=== PATIENT | male | born 1965 | race Two or more races ===

== ENCOUNTER 2020-10-14 14:36 | Inpatient (IN) | payer OTHER ==
[~2020-10-14] VITALS: Ht 30.5 cm; Wt 81.8 kg
[2020-10-14] MEDS ORDERED: NITROGLYCERIN 0.4 MG SL TAB SL PRN (15:15)
[2020-10-14] MEDS ORDERED: ACETAMINOPHEN 500 MG TAB PO PRN (15:15)
[2020-10-14] MEDS ORDERED: ONDANSETRON HCL 4 MG/2 ML VIAL IV PRN (15:15)
[2020-10-14] MEDS ORDERED: ACETAMINOPHEN 325 MG TAB PO PRN (15:15)
[2020-10-14] MEDS ORDERED: MORPHINE SULF INJ 2 MG/ML SYRINGE 1ML IV PRN ×2 (15:15)
[2020-10-14] MEDS ORDERED: TEMAZEPAM 15 MG CAP PO PRN (15:15)
[2020-10-14] MEDS ORDERED: HYDROmorphone HCL 2 MG/ML VL IV PRN (15:15)
[2020-10-14] MEDS ORDERED: REMDESIVIR PER PHARMACY 0 ML IV SCH (15:15)
[2020-10-14] MEDS ORDERED: HYDROcodone-ACET 5/325MG TAB PO PRN (15:15)
[2020-10-14 16:00] VITALS: BP 124/77
[2020-10-14] MEDS ORDERED: REMDESIVIR 200 MG in NS 210ml LOADING DOSE ADULT IV ONE (17:00)
[2020-10-14] MEDS: ALBUTEROL SULF HFA 90MCG INH 200DOSE IN PRN (19:30)
[2020-10-14] MEDS: BUDESONIDE (INHALATION) 180 MCG IH IN SCH (19:30)
[2020-10-14] MEDS ORDERED: CEFTRIAXONE SODIUM 2 GM in D5W 5% 50 ML IV ONE (20:30)
[2020-10-14] MEDS ORDERED: POLYETHYLENE GLYCOL 17 GM PWDR PO ONE (20:30)
[2020-10-14] MEDS ORDERED: cefTRIAXone 1GM/50ML D5W 50 ML IV ONE ×3 (20:45→21:00)
[2020-10-14] MEDS: ENOXAPARIN SOD 40 MG/0.4 ML SYRINGE SC SCH (21:38)
[2020-10-14] MEDS: SODIUM CHLOR 0.9% PF (SALINE LOCK) 10ML VIAL/SYR IV SCH (21:38)
[2020-10-15] VITALS: BP 128/80
[2020-10-15] MEDS: SODIUM CHLOR 0.9% PF (SALINE LOCK) 10ML VIAL/SYR IV SCH (05:48)
[2020-10-15 06:22] LABS: Basophils # (auto) 0 10 ^3/uL (0-0.2); Basophils % (auto) 0.7 % (0.0-2.0); Eosinophils # (auto) 0.2 10 ^3/uL (0-0.8); Eosinophils % (auto) 3.3 % (0.0-7.0); Hematocrit 37.6 % (41.0-53.0); Hemoglobin 13.2 g/dL (13.5-17.5); Lymphocytes # (auto) 1.5 10 ^3/uL (0.4-5.4); Lymphocytes % (auto) 29.9 % (10.0-50.0); Mean Corpuscular Hemoglobin 28.9 pg (28.0-32.0); Mean Corpuscular Hgb Conc. 35.1 g/dL (32.0-36.0); Mean Corpuscular Volume 82.3 fL (80.0-100.0); Monocytes # (auto) 0.7 10 ^3/uL (0-1.3); Monocytes % (auto) 13.9 % (0.0-12.0); Neutrophils # (auto) 2.7 10 ^3/uL (1.6-8.6); Neutrophils % (auto) 52.2 % (37.0-80.0); Nucleated Red Blood Cells % 0.1 %; Platelet Count (auto) 439 10^3/uL (140-450); Red Blood Cells 4.57 10^6/uL (4.5-5.90); Red Cell Distribution Width 13.8 % (11.8-14.3); White Blood Cell 5.2 10^3/uL (4.4-10.8)
[2020-10-15] MEDS: BUDESONIDE (INHALATION) 180 MCG IH IN SCH (06:30)
[2020-10-15 06:47] LABS: Potassium 4.1 mmol/L (3.5-5.1)
[2020-10-15 06:56] LABS: Cholesterol 142 mg/dL (< 200); HDL Cholesterol 35 mg/dL (40-59); LDL Cholesterol 97 mg/dL (< 100); Triglycerides 119 mg/dL (< 150)
[2020-10-15 06:59] LABS: Albumin 2.5 g/dL (3.4-5.0); BUN/Creatinine Ratio 16.7; Bilirubin, Total 0.3 mg/dL (0.2-1.0); Calcium 7.6 mg/dL (8.5-10.1); Total Protein 6.6 g/dL (6.4-8.2)
[2020-10-15 08:00] VITALS: BP 126/78
[2020-10-15] MEDS: ALBUTEROL SULF HFA 90MCG INH 200DOSE IN PRN (08:32)
[2020-10-15] MEDS: ENOXAPARIN SOD 40 MG/0.4 ML SYRINGE SC SCH (09:59)
[2020-10-15] MEDS ORDERED: ASCORBIC ACID 1,000 MG TAB PO SCH (10:00)
[2020-10-15] MEDS ORDERED: CHOLECALCIFEROL (VITD3) 2,000 UNIT CAP PO SCH (10:00)
[2020-10-15] MEDS ORDERED: cefTRIAXone 1GM/50ML D5W 50 ML IV ONE (10:45)
[2020-10-15] MEDS ORDERED: FUROSEMIDE 20 MG/2 ML VIAL IV ONE (11:00)
[2020-10-15 13:55] VITALS: BP 126/78
[2020-10-15] MEDS ORDERED: REMDESIVIR 100mg 100 MG in SODIUM CHL 0.9% 230 ML IV SCH (15:00)
== END 2020-10-15 14:22 | disposition home or self-care (01) | DRG 177 ==
LOC: TELE-EAST 14:36
PROVIDERS: ADMIT Internal Medicine; ATTEND Internal Medicine
PROC: XW033E5 Introduction of Remdesivir Anti-infective into Peripheral Vein, Percutaneous Approach, New Technology Group 5 (ICD-10-PCS; principal; 2020-10-14)
DX: U07.1 COVID-19 (principal); J12.82 Pneumonia due to coronavirus disease 2019; D68.59 Other primary thrombophilia
CPT/HCPCS: 36415; 71045; 80053; 80061; 83735; 85025; 85379; 94640; G0378; J0696; J7060

== ENCOUNTER 2020-10-16 12:11 | Outpatient (CLI) | payer OTHER ==
[2020-10-16 12:35] VITALS: BP 141/87
[2020-10-16] MEDS ORDERED: REMDESIVIR 100mg 100 MG in SODIUM CHL 0.9% 230 ML IV SCH (13:00)
[2020-10-16 13:30] VITALS: BP 130/80
[2020-10-16 13:45] VITALS: BP 132/79
[2020-10-16 14:00] VITALS: BP 140/86
[2020-10-16 14:15] VITALS: BP 144/84
[2020-10-16 14:35] VITALS: BP 153/87
== END 2020-10-16 15:30 | disposition home or self-care (01) ==
LOC: ER 12:11
PROVIDERS: ATTEND Internal Medicine
DX: U07.1 COVID-19 (principal); J18.9 Pneumonia, unspecified organism

== ENCOUNTER → 2020-10-17 | Outpatient (CLI) | payer OTHER ==
[~2020-10-17] VITALS: Ht 30.5 cm; Wt 81.6 kg
[~2020-10-17] MED LIST: REMDESIVIR 100mg 100 MG in SODIUM CHL 0.9% 230 ML IV ONE
[2020-10-17 12:10] VITALS: BP 142/87
[2020-10-17 13:20] VITALS: BP 139/90
[2020-10-17 13:50] VITALS: BP 139/85
[2020-10-17 14:20] VITALS: BP 139/85
== END | disposition home or self-care (01) ==
LOC: ER 12:04
PROVIDERS: ATTEND Internal Medicine
DX: U07.1 COVID-19 (principal); J18.9 Pneumonia, unspecified organism

== ENCOUNTER 2020-10-18 12:51 | Outpatient (CLI) | payer OTHER ==
[2020-10-18 12:50] VITALS: BP 139/85
[2020-10-18 13:30] VITALS: BP_SYST 127; BP_SYST 139; BP_DIAS 80; BP_DIAS 86
[2020-10-18 14:02] VITALS: BP 127/86
== END 2020-10-18 14:05 | disposition home or self-care (01) ==
LOC: ER 12:51
PROVIDERS: ATTEND Internal Medicine
DX: U07.1 COVID-19 (principal); J18.9 Pneumonia, unspecified organism